=== PATIENT | female | born 1980 | race Caucasian/White ===

== ENCOUNTER 2025-05-21 07:48 | Outpatient (CLI) | payer BC | END 2025-05-21 07:49 | disposition home or self-care (01) | LOC: CSHULT 07:48 | PROVIDERS: ATTEND Obstetrics & Gynecology | DX: N63.25 Unspecified lump in the left breast, overlapping quadrants (principal) ==

== ENCOUNTER 2025-06-25 10:48 | Outpatient (CLI) | payer BC | END 2025-06-25 10:49 | disposition home or self-care (01) | LOC: CSHMRI 10:48 | PROVIDERS: ATTEND Obstetrics & Gynecology | DX: R92.333 Mammographic heterogeneous density, bilateral breasts (principal) | CPT/HCPCS: C8908 ==